=== PATIENT | male | born 1975 | race African-American/Black ===

== ENCOUNTER 2016-06-29 08:24 | Emergency (ER) | payer SELFPAY ==
[~2016-06-29] VITALS: Ht 172.7 cm; Wt 86.2 kg
[2016-06-29 11:43] VITALS: BP 128/86
== END 2016-06-29 11:43 | disposition home or self-care (01) ==
LOC: ER 08:26
DX: S82.831A Other fracture of upper and lower end of right fibula, initial encounter for closed fracture (principal); S00.03XA Contusion of scalp, initial encounter; M25.551 Pain in right hip; F17.200 Nicotine dependence, unspecified, uncomplicated; K04.7 Periapical abscess without sinus; M17.11 Unilateral primary osteoarthritis, right knee; G89.29 Other chronic pain; W18.39XA Other fall on same level, initial encounter; Y93.89 Activity, other specified; Y92.89 Other specified places as the place of occurrence of the external cause; Y99.9 Unspecified external cause status
CPT/HCPCS: 29515; 70450; 70486; 73502; 73562; 99284; 99406; A4606; Z7610; 73510-TC

== ENCOUNTER 2016-07-25 15:16 | Emergency (ER) | payer OTHER ==
[~2016-07-25] VITALS: Ht 172.7 cm; Wt 61.2 kg
[2016-07-25 15:39] VITALS: BP 135/85
== END 2016-07-25 16:15 | disposition home or self-care (01) ==
LOC: ER 15:21
DX: S01.81XD Laceration without foreign body of other part of head, subsequent encounter (principal); F10.20 Alcohol dependence, uncomplicated; F17.210 Nicotine dependence, cigarettes, uncomplicated; G40.909 Epilepsy, unspecified, not intractable, without status epilepticus
CPT/HCPCS: 99281; A4606; Z7610; Z7502